=== PATIENT | female | born 1955 | race Caucasian/White ===

== ENCOUNTER 2019-07-22 12:16 | Emergency (ER) | payer BC ==
[2019-07-22] MEDS ORDERED: Bacitracin 1 PK ONE (14:13)
[2019-07-22] MEDS ORDERED: Ibuprofen 200 MG TAB ONE (14:13)
--- NOTE | 2019-07-22 14:37 | RAD ---
XR Knee Lt 4 View STANDARD: 07/22/2019 2:12 PM CLINICAL INDICATION: Fall COMPARISON: None. FINDINGS: Fracture:There is a mildly displaced fracture of the patella. There is joint capsular distention. Arthropathy:Moderate osteoarthritis Incidental findings:Vascular calcification and metallic clips IMPRESSION: 1. Mildly displaced patellar fracture. 2. Joint capsular distention..
== END 2019-07-22 18:06 | disposition home or self-care (01) ==
LOC: ERS 12:16
DX: S82.002A Unspecified fracture of left patella, initial encounter for closed fracture (principal); S80.01XA Contusion of right knee, initial encounter; I10 Essential (primary) hypertension; W18.30XA Fall on same level, unspecified, initial encounter

== ENCOUNTER 2020-05-20 15:51 | Outpatient (CLI) | payer BC ==
--- NOTE | 2020-05-20 16:27 | MMO ---
Bilateral MAMMO Bilat Screen [facility]. CLINICAL HISTORY: Patient is 64 years old and is seen for screening. The patient has the following family history of breast cancer: paternal grandmother, at age 60; paternal aunt, at age 40 and paternal aunt, at age 50. The patient has no personal history of cancer. VIEWS: The views performed were: bilateral craniocaudal with tomosynthesis and bilateral mediolateral oblique with tomosynthesis. FILMS COMPARED: The present examination has been compared to prior imaging studies performed at [facility] on 09/07/2009, 09/07/2010, 09/08/2011 and 05/29/2016. This study has been interpreted with the assistance of computer-aided detection. MAMMOGRAM FINDINGS: There are scattered fibroglandular densities. Benign calcifications are noted bilaterally. There are no suspicious masses, suspicious calcifications, or new areas of architectural distortion. IMPRESSION: THERE IS NO MAMMOGRAPHIC EVIDENCE OF MALIGNANCY. A ROUTINE FOLLOW-UP MAMMOGRAM IN 1 YEAR IS RECOMMENDED. THE RESULTS OF THIS EXAM WERE SENT TO THE PATIENT. ACR BI-RADS Category 2 - Benign finding MAMMOGRAPHY NOTE: 1. A negative mammogram report should not delay a biopsy if a dominant of clinically suspicious mass is present. 2. Approximately 10% to 15% of breast cancers are not detected by mammography. 3. Adenosis and dense breasts may obscure an underlying neoplasm. Reported by: JESSICA GRULLON MD Electonically Signed: [id number]
== END 2020-05-20 15:52 | disposition home or self-care (01) ==
LOC: BICMAMMO 15:51
PROVIDERS: ATTEND Internal Medicine Hospice and Palliative Medicine
DX: Z12.31 Encounter for screening mammogram for malignant neoplasm of breast (principal); Z80.3 Family history of malignant neoplasm of breast
CPT/HCPCS: 77063; 77067

== ENCOUNTER 2020-10-01 12:14 | Outpatient (CLI) | payer BC ==
--- NOTE | 2020-10-01 14:03 | ULT ---
LEFT LOWER EXTREMITY VENOUS ULTRASOUND: HISTORY: Left lower extremity swelling/edema. TECHNIQUE: Multiplanar, smith scale, and color Doppler images were obtained in a left lower extremity venous ultr asound. Spectral analysis of the Doppler waveforms was performed. FINDINGS: Left common femoral vein, profunda femoral vein, superficial femoral vein, and popliteal vein are nor mal in appearance without visible thrombus. These vessels demonstrate normal compression, flow, and augmentation. The posterior tibial vein and greater saphenous vein are also patent. IMPRESSION: No evidence of deep vein thrombosis. POS: EAA
== END 2020-10-01 12:15 | disposition home or self-care (01) ==
LOC: BICULT 12:14
PROVIDERS: ATTEND Emergency Medicine
DX: M79.89 Other specified soft tissue disorders (principal)

== ENCOUNTER 2021-07-12 11:34 | Outpatient (CLI) | payer BC | END 2021-07-12 11:35 | disposition home or self-care (01) | LOC: BICRAD 11:34 | PROVIDERS: ATTEND Internal Medicine Hospice and Palliative Medicine | DX: M79.89 Other specified soft tissue disorders (principal) ==

== ENCOUNTER 2022-02-22 15:17 | Outpatient (CLI) | payer BC | END 2022-02-22 15:18 | disposition home or self-care (01) | LOC: BICULT 15:17 | PROVIDERS: ATTEND Internal Medicine Hospice and Palliative Medicine | DX: M79.605 Pain in left leg (principal) ==

== ENCOUNTER 2022-03-07 10:27 | Outpatient (CLI) | payer BC | END 2022-03-07 10:28 | disposition home or self-care (01) | LOC: BICMAMMO 10:27 | PROVIDERS: ATTEND Internal Medicine Hospice and Palliative Medicine | DX: M85.862 Other specified disorders of bone density and structure, left lower leg (principal); M85.851 Other specified disorders of bone density and structure, right thigh | CPT/HCPCS: 77080 ==

== ENCOUNTER 2023-11-15 10:54 | Outpatient (CLI) | payer MEDICARE | END 2023-11-15 10:55 | disposition home or self-care (01) | LOC: BICMAMMO 10:54 | PROVIDERS: ATTEND Internal Medicine Hospice and Palliative Medicine | DX: Z12.31 Encounter for screening mammogram for malignant neoplasm of breast (principal); Z80.3 Family history of malignant neoplasm of breast | CPT/HCPCS: 77063; 77067 ==

== ENCOUNTER 2024-02-27 10:47 | Day surgery (SDC) | payer MEDICARE ==
[2024-02-27 11:48] VITALS: BP 119/57; TEMP 98
== END 2024-02-27 13:12 | disposition home or self-care (01) ==
LOC: ONC/OP 10:47
PROVIDERS: ATTEND Internal Medicine
DX: K51.90 Ulcerative colitis, unspecified, without complications (principal); Z88.8 Allergy status to other drugs, medicaments and biological substances
CPT/HCPCS: 96413; J3358; J7050

== ENCOUNTER 2024-07-17 13:23 | Outpatient (CLI) | payer MEDICARE | END 2024-07-17 13:24 | disposition home or self-care (01) | LOC: DTY/OP 13:23 | PROVIDERS: ATTEND Internal Medicine Hospice and Palliative Medicine | DX: E11.9 Type 2 diabetes mellitus without complications (principal); Z71.3 Dietary counseling and surveillance | CPT/HCPCS: 97802 ==